=== PATIENT | male | born 1990 | race Caucasian/White ===

== ENCOUNTER 2021-05-15 08:37 | Emergency (ER) | payer OTHER ==
[~2021-05-15] VITALS: Ht 172.7 cm; Wt 63.6 kg
[2021-05-15 08:45] VITALS: BP 126/85
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
[2021-05-15 09:51] LABS: BASO % 1 % (0-3); EOS # 0.2 x10^3/uL (0.0-0.7); EOS % 3 % (0-3); HEMATOCRIT 42.8 % (39.0-53.0); HEMOGLOBIN 14.7 g/dL (13.0-17.5); LYMPH % 18 % (24-48); MEAN CORPUSCULAR HEMOGLOBIN 32 pg (25-35); MEAN CORPUSCULAR HGB CONC 34 g/dL (31-37); MEAN CORPUSCULAR VOLUME 93 fL (79-100); MONO # 0.4 x10^3/uL (0.0-1.1); MONO % 7 % (0-9); NEUT # 3.8 x10^3uL (1.8-7.7); NEUT % 71 % (31-73); PLATELET COUNT 236 x10^3/uL (140-400); RED BLOOD COUNT 4.59 x10^6/uL (4.30-5.70); RED CELL DISTRIBUTION WIDTH 12.6 % (11.5-14.5); WHITE BLOOD COUNT 5.3 x10^3/uL (4.0-11.0)
[2021-05-15 09:57] LABS: CREATININE 0.8 mg/dL (0.7-1.3); GFR 113.5; POTASSIUM 4.7 mmol/L (3.5-5.1)
[2021-05-15 10:02] LABS: ALBUMIN 4.2 g/dL (3.4-5.0); ALBUMIN/GLOBULIN RATIO 1.4 (1.0-1.7); MAGNESIUM 2.5 mg/dL (1.8-2.4); TOTAL BILIRUBIN 0.7 mg/dL (0.2-1.0); TOTAL PROTEIN 7.1 g/dL (6.4-8.2)
--- NOTE | 2021-05-15 10:13 | EKG ---
[address] [address] Test Date: 2021-05-15 Test Time: 09:18:14 Pat Name: ALEYDA FRANKLIN Department: Room: Gender: M Marketing Senior Recruiter: NESHA : 1990 Requested By: LUIS CARLOS SANTILLAN Order Number: [id number] Reading MD: Jose Lin Measurements Intervals [place] Rate: 66 P: 4 AR: 176 QRS: 56 QRSD: 86 T: 51 QT: 358 QTc: 377 Interpretive Statements SINUS RHYTHM Electronically Signed On 05-17-2021 15:08:00 BEE TENDER by Jose Lin
[2021-05-15] MEDS ORDERED: OXCA300T19 PO (10:20)
[2021-05-15] MEDS ORDERED: IBUPROFEN 600 MG TABLET. PO ONE (10:30)
== END 2021-05-15 10:41 | disposition home or self-care (01) ==
LOC: ER 08:37
DX: R56.9 Unspecified convulsions (principal); R51.9 Headache, unspecified; V98.8XXA Other specified transport accidents, initial encounter; Y93.89 Activity, other specified; Y92.89 Other specified places as the place of occurrence of the external cause; Y99.8 Other external cause status
CPT/HCPCS: 36415; 70450; 80053; 83735; 85025; 93005; 99285